=== PATIENT | female | born 1980 | race Caucasian/White ===

== ENCOUNTER 2023-10-30 10:40 | Outpatient (CLI) | payer OTHER, SELFPAY ==
--- NOTE | ~2023-10-30 | MM_ITS ---
EXAMINATION: MM screening jakub BI w neftali HISTORY: Screening TECHNIQUE: Craniocaudal and mediolateral oblique 3-D tomosynthesis images were obtained and synthetic 2-D images were generated. CAD analysis was submitted and interpreted. COMPARISON: No prior mammogram is available for comparison at this institution. BREAST PARENCHYMAL COMPOSITION: Not dense: There are scattered areas of fibroglandular density. FINDINGS: There is no mammographic evidence for malignancy in the left breast. There are masses cente red in the upper outer quadrant of the right breast, middle third. IMPRESSION: 1. Right breast masses, upper outer quadrant. 2. Additional mammographic views and possible breast ultrasound are recommended. BI-RADS Category 0: Incomplete: Needs additional imaging evaluation. Reviewed, dictated and finalized at location A. [employer] IMPRESSION: 1. Right breast masses, upper outer quadrant. 2. Additional mammographic views and possible breast ultrasound are recommended . BI-RADS Category 0: Incomplete: Needs additional imaging evaluation.
== END 2023-10-30 10:41 | disposition home or self-care (01) ==
PROVIDERS: PCP Family Medicine; Visit Provider Family Medicine
DX: Z12.31 Encounter for screening mammogram for malignant neoplasm of breast (principal); R92.8 Other abnormal and inconclusive findings on diagnostic imaging of breast
CPT/HCPCS: 77063; 77067

== ENCOUNTER 2024-04-07 10:19 | Outpatient (CLI) | payer OTHER, SELFPAY ==
--- NOTE | ~2024-04-07 | MMUS_ITS ---
EXAMINATION: MM diagnostic jakub RT w neftali, US breast RT limited HISTORY: Follow-up right breast asymmetry TECHNIQUE: Additional 3-D tomosynthesis images of the right breast were performed and synthetic 2-D i mages were generated. CAD analysis was submitted and interpreted. High resolution Limited right breas t ultrasound was performed. COMPARISON: 10/30/2023 BREAST PARENCHYMAL COMPOSITION: Not dense: There are scattered areas of fibroglandular density. FINDINGS: MAMMOGRAPHIC FINDINGS: There are a few scattered low-density masses in the upper and central aspect of the right breast on m ediolateral view and spot MLO view is which are obscured by fibroglandular tissue. There are no suspicious calcifications or architectural distortion. ULTRASOUND: Limited right breast ultrasound: At 6:00, 4 cm from the nipple there is an irregular shaped 5 mm hypo echoic mass with some angular margins. No internal vascularity or posterior features. At 9:00, 7 cm f rom the nipple there is an oval parallel oriented 5 mm mass without internal vascularity or posterior features, likely benign. At 10:00, 2 cm from the nipple there is a round 0.35 cm mass, consistent wi th a cyst. At 11:00, 3 cm from the nipple there is an oval hypoechoic 5 mm mass without internal vasc ularity or posterior features. There is a thin capsule. At 11:00, 3 cm from the nipple there is an ir regular shaped complicated partially cystic 8mm mass without internal vascularity or posterior featur es. IMPRESSION: 1. Abnormal right breast masses at 6:00, 4 cm from the nipple measuring 5 mm and 11:00, 3 cm from the nipple measuring 8 mm. 2. Ultrasound-guided right breast biopsies recommended. BI-RADS category 4, suspicious findings. Reviewed, dictated and finalized at location B. IMPRESSION: 1. Abnormal right breast masses at 6:00, 4 cm from the nipple measuring 5 mm an d 11:00, 3 cm from the nipple measuring 8 mm. 2. Ultrasound-guided right breast biopsies recommended. BI-RADS category 4, suspicious findings.
== END 2024-04-07 10:20 | disposition home or self-care (01) ==
LOC: ANHIMG 10:31
PROVIDERS: PCP Family Medicine; Visit Provider Family Medicine
DX: R92.8 Other abnormal and inconclusive findings on diagnostic imaging of breast (principal)
CPT/HCPCS: 76642; 77061; 77065; G0279